=== PATIENT | female | born 1970 ===

== ENCOUNTER 2021-10-25 11:54 | Outpatient (REF) | payer OTHER, SELFPAY ==
[2021-10-25 14:02] LABS: SARS PCR* Negative SARS-CoV-2 (Negative)
== END 2021-10-25 11:55 | disposition home or self-care (01) ==
LOC: NPINS 11:54
PROVIDERS: Visit Provider Family Medicine
DX: Z20.822 Contact with and (suspected) exposure to COVID-19 (principal)
CPT/HCPCS: 87635